=== PATIENT | male | born 1985 | race Two or more races ===

== ENCOUNTER 2023-11-18 10:19 | Day surgery (SDC) | payer OTHER ==
[~2023-11-18] VITALS: Ht 198.1 cm; Wt 186.0 kg
[~2023-11-18 10:19] MED LIST: FLUO-126 PO; HYDR12.59 PO; LISI10TA34 PO
[2023-11-18] MEDS ORDERED: BACITRACIN TOP OINT 1 UD PKG TOP ONE (12:50)
[2023-11-18] MEDS ORDERED: LIDOCAINE W/ EPINEPHRINE 1% 20ML VIAL ONE ×2 (12:50→14:52)
[2023-11-18] MEDS ORDERED: PROPOFOL 10 MG/ML 20 ML IV ONE (14:35)
[2023-11-18] MEDS ORDERED: ceFAZolin 2 GM/D5W100ml 100 ML IV ONE (14:37)
[2023-11-18] MEDS ORDERED: MORPHINE SULFATE 4 MG/ML SYR/VIAL IV PRN ×2 (15:00)
[2023-11-18] MEDS ORDERED: HYDROmorphone HCL 2 MG/ML VL/or syr ONE (15:34)
[2023-11-18] MEDS: LIDOCAINE 1%-Mpf/Epinephrine 1:200,000 30ml VIAL IJ ONE (15:50)
[2023-11-18 16:06] VITALS: PULSE 66; RESP 14; TEMP 97.4; O2SAT 92
[2023-11-18 16:45] VITALS: BP 110/84; PULSE 81; RESP 12; O2SAT 94
[2023-11-18] MEDS: ONDANSETRON HCL 4 MG/2 ML VIAL IV ONE (17:03)
== END 2023-11-18 17:25 | disposition home or self-care (01) ==
LOC: SUR 10:19
PROVIDERS: ATTEND Urology
DX: Z30.2 Encounter for sterilization (principal); I10 Essential (primary) hypertension; E66.01 Morbid (severe) obesity due to excess calories; Z88.0 Allergy status to penicillin; Z79.899 Other long term (current) drug therapy
CPT/HCPCS: 55250; 88305; J1171; J2004; J2405; J2704

== ENCOUNTER 2024-05-29 06:17 | Day surgery (SDC) | payer OTHER ==
[~2024-05-29] VITALS: Ht 198.1 cm; Wt 166.5 kg
[~2024-05-29 06:17] MED LIST changes: +BACL10TA PO; -FLUO-126 PO; -HYDR12.59 PO; +LISI-707 PO; -LISI10TA34 PO; +MULT-1195 PO; +TIRZ5INJ2 SC; +[UNRECOGNIZED DRUG - CODE] PO
[2024-05-29] MEDS ORDERED: CLINDAMYCIN 600MG IV 50 ML IV ONE (06:42)
[2024-05-29] MEDS ORDERED: fentaNYL CITRATE 100 MCG/2 ML VL ONE ×2 (06:53→06:54)
[2024-05-29] MEDS ORDERED: DexAMETHasone SOD PHOS 10MG/1ML VIAL INJ ONE (07:05)
[2024-05-29] MEDS ORDERED: ONDANSETRON HCL 4 MG/2 ML VIAL ONE (07:05)
[2024-05-29] MEDS ORDERED: ePHEDrine SULFATE 50 MG/ML AMP ONE (07:08)
[2024-05-29] MEDS: BUPIVACAINE 0.25% INJ 50ML VIAL ONE (07:23)
[2024-05-29] MEDS: LIDOCAINE 1%-Mpf/Epinephrine 1:200,000 30ml VIAL ONE (07:23)
[2024-05-29 07:34] VITALS: RESP 14; TEMP 97.6; O2SAT 100
[2024-05-29] MEDS ORDERED: ONDANSETRON HCL 4 MG/2 ML VIAL IV ONE (07:45)
[2024-05-29] MEDS ORDERED: MEPERIDINE HCL (25 MG/ML) 1ML VIAL IV PRN (07:45)
[2024-05-29] MEDS ORDERED: HYDROmorphone HCL 2 MG/ML VL/or syr IV PRN (07:45)
[2024-05-29] MEDS ORDERED: ACETAMINOPHEN IV 1000 MG/100ML (10MG/ML) IV PRN (07:45)
[2024-05-29 08:04] VITALS: BP 142/66; PULSE 79; RESP 18; O2SAT 96
--- NOTE | 2024-05-29 12:10 | DVHOP2 ---
Operative Report - 2 Report Details Date: 05/29/24 Preop Diagnosis: Right carpal tunnel Postop Diagnosis: Right carpal tunnel Surgeon: Jonathan Dominguez MD Radio Equipment Installer: Carlos BAIRD Anesthesiologist: Olga CHAPIN Anesthesia: Mac, Local Consent: The patient was informed of the risks and benefits of the procedure. These i nclude but are not limited to complications of anesthesia, postoperative infection, incomplete relief of symptoms, recurrence of symptoms, damage to blood vessels, nerves and tendons, deep venous thrombosis, pulmonary embolism and possible need for repeat surgery in the future. Estimated Blood Loss: 2 cc Name of Procedure Performed Right carpal tunnel release, flexor synovectomy Procedure Details Procedure Details: Indications: he has tried bracing/NSAIDs/injections without relief. he has had EMG/NCV testing that is consistent with her clinical exam. he wishes to proceed with surgical intervention. Risks/benefits/options and alternatives were discussed in depth with patient. Risks include but not exclusive to: bleeding, infection, nerve injury, chronic pain, stiffness, motor or sensory paralysis, l oss of limb, deep venous thrombosis, and . PROCEDURE IN DETAIL: Patient was seen in the preoperative area. Consent was signed and then she was taken to the operating room. With the patient under adequate anesthesia, the Right upper extremity was prepped and draped in a sterile manner. The arm was exsanguinated. The tourniquet was elevated at 250 mm/Hg. Construction lines were made on the palm to identify the ring ray. A 3 cm vertical incision made in midpalm along ring finger. Blunt dissection exposed the palmar fascia which was divided. Hemostasis was obtained with bipolar cautery. Retractors were then placed to allow visualization of the distal extent of the transverse carpal ligament, and this was then divided longitudinally under direct vision. Baby Metzenbaum scissors were used to dissect distal to this area to confirm the absence of any remaining crossing obstructing fibrous band. Retractors were then replaced proximally to allow visualization of proximal extent of the transverse carpal ligament and the release was continued proximally until complete release was performed. This was confirmed by visually and palpably. Next, baby Metzenbaum scissors were used to dissect anteroposterior adjacent antebrachial fascia, and this was divided kathe gitudinally under direct vision using baby Metzenbaum scissors to a level of approximately 3 cm proximal to the proximal extent of the skin incision. Radial and ulnar edges of the transverse carpal ligament were identified, and complete release was confirmed. Flexor tendon was debrided of synovitis The wound was then closed with 3-0 nylon for carpal tunnel. sterile dressing was applied. The tourniquet was deflated. The patient was awakened from anesthesia and returned to the Recovery Room in satisfactory condition, having tolerated the procedure well. Condition Good Disposition Home JONATHAN DOMINGUEZ MD May 29, 2024 12:10
== END 2024-05-29 08:20 | disposition home or self-care (01) ==
LOC: SUR 06:17
PROVIDERS: ATTEND Orthopaedic Surgery Adult Reconstructive Orthopaedic Surgery
DX: G56.01 Carpal tunnel syndrome, right upper limb (principal); M65.842 Other synovitis and tenosynovitis, left hand; I10 Essential (primary) hypertension; E66.01 Morbid (severe) obesity due to excess calories; Z68.41 Body mass index [BMI] 40.0-44.9, adult; Z98.52 Vasectomy status; Z88.0 Allergy status to penicillin; Z79.899 Other long term (current) drug therapy
CPT/HCPCS: 64721; J1100; J2004; J2405; J3010; J3490

== ENCOUNTER → 2024-09-11 | Day surgery (SDC) | payer OTHER ==
[~2024-09-11] VITALS: Ht 198.1 cm; Wt 166.5 kg
[~2024-09-11] MED LIST changes: +FLUMAZENIL 0.1 MG/ML INJ 10ML MDV IV PRN; +GLYCOPYRROLATE 0.2 MG/ML 1ML VIAL ONE; +HYDROmorphone HCL 2 MG/ML VL/or syr IV PRN; +KETAMINE 50mg/ML 1ml syringe ONE; +KETOROLAC TROMETH 30 MG/ML 1ML VIAL ONE; +LIDOCAINE 1% INJ PF 5ML AMP ONE; +NALOXONE HCL 0.4 MG/ML VIAL IV PRN; +ONDANSETRON HCL 4 MG/2 ML VIAL IV PRN; +ONDANSETRON HCL 4 MG/2 ML VIAL ONE; +PROPOFOL 10 MG/ML 20 ML IV ONE; +[UNRECOGNIZED DRUG - REMARK] IV ONE; +fentaNYL CITRATE 100 MCG/2 ML VL IV PRN; +hydrALAZINE HCL 20 MG/ML VL IV PRN
[2024-09-11] MEDS: BUPIVACAINE 0.25% INJ 50ML VIAL ONE (07:27)
[2024-09-11 07:35] VITALS: RESP 12; TEMP 97.1; O2SAT 93
[2024-09-11 07:55] VITALS: BP 115/64; PULSE 59; RESP 11; O2SAT 95
--- NOTE | 2024-09-12 13:02 | DVHOP2 ---
Operative Report - 2 Report Details Date: 09/11/24 Preop Diagnosis: Left carpal tunnel Postop Diagnosis: Left carpal tunnel Surgeon: Jonathan Dominguez MD Consent: The patient was informed of the risks and benefits of the procedure. These include but are not limited to complications of anesthesia, postoperative infection, incomplete relief of symptoms, recurrence of symptoms, damage to blood vessels, nerves and tendons, deep venous thrombosis, pulmonary embolism and possible need for repeat surgery in the future. Name of Procedure Performed Left carpal tunnel release, flexor synovectomy Procedure Details Procedure Details: Indications: he has tried bracing/NSAIDs/injections without relief. he has had EMG/NCV testing that is consistent with her clinical exam. he wishes to proceed with surgical intervention. Risks/benefits/options and alternatives were discussed in depth with patient. Risks include but not exclusive to: bleeding, infection, nerve injury, chronic pain, stiffness, motor or sensory paralysis, loss of limb, deep venous thrombosis, and . PROCEDURE IN DETAIL: Patient was seen in the preoperative area. Consent was signed and then she was taken to the operating room. With the patient under adequate anesthesia, the Right upper extremity was prepped and draped in a sterile manner. The arm was exsanguinated. The tourniquet was elevated at 250 mm/Hg. Construction lines were made on the palm to identify the ring ray. A 3 cm vertical incision made in midpalm along ring finger. Blunt dissection exposed the palmar fascia which was divided. Hemostasis was obtained with bipolar cautery. Retractors were then placed to allow visualization of the distal extent of the transverse carpal ligament, and this was then divided longitudinally under direct vision. Baby Metzenbaum scissors were used to dissect distal to this area to confirm the absence of any remaining crossing obstructing fibrous band. Retractors were then replaced proximally to allow visualization of proximal extent of the transverse carpal ligament and the release was continued proximally until complete release was performed. This was confirmed by visually and palpably. Next, baby Metzenbaum scissors were used to dissect anteroposterior adjacent antebrachial fascia, and this was divided longitudinally under direct vision using baby Metzenbaum scissors to a level of approximately 3 cm proximal to the proximal extent of the skin incision. Radial and ulnar edges of the transverse carpal ligament were identified, and complete release was confirmed. Flexor tendon was debrided of synovitis The wound was then closed with 3-0 nylon for carpal tunnel. sterile dressing was applied. The tourniquet was deflated. The patient was awakened from anesthesia and returned to the Recovery Room in satisfactory condition, having tolerated th e procedure well. Disposition Home JONATHAN DOMINGUEZ MD Sep 12, 2024 13:02
== END | disposition home or self-care (01) ==
LOC: SUR 06:14
PROVIDERS: ATTEND Orthopaedic Surgery Adult Reconstructive Orthopaedic Surgery
DX: G56.02 Carpal tunnel syndrome, left upper limb (principal); M65.842 Other synovitis and tenosynovitis, left hand; I10 Essential (primary) hypertension; E66.01 Morbid (severe) obesity due to excess calories; Z88.0 Allergy status to penicillin; Z98.52 Vasectomy status; Z79.899 Other long term (current) drug therapy
CPT/HCPCS: 64721; J1100; J1885; J2405; J2704; J3373; J7050; J3490